=== PATIENT | female | born 1935 ===

== ENCOUNTER → 2017-07-10 07:03 | Outpatient (CLI) | payer OTHER | END | disposition home or self-care (01) | LOC: LAB 07:03 | DX: R22.2 Localized swelling, mass and lump, trunk (principal); Z01.812 Encounter for preprocedural laboratory examination ==

== ENCOUNTER 2017-07-20 06:18 | Day surgery (SDC) | payer OTHER ==
[~2017-07-20 06:18] MED LIST: BONIVA150 MG PO
== END 2017-07-20 10:00 | disposition home or self-care (01) ==
LOC: CIR.AMB 06:18
DX: C44.529 Squamous cell carcinoma of skin of other part of trunk (principal)